=== PATIENT | female | born 1975 | race African-American/Black ===

== ENCOUNTER 2020-04-27 15:52 | Outpatient (CLI) | payer BC, SELFPAY ==
--- NOTE | ~2020-04-27 | MM_ITS ---
EXAMINATION: MM screening [facility] BI w baldev HISTORY: Screening mammogram TECHNIQUE: Craniocaudal and mediolateral oblique 3-D tomosynthesis images were obtained and synthetic 2-D images were generated. CAD analysis was submitted and interpreted. COMPARISON: 09/20/2018 bilateral diagnostic digital mammogram BREAST PARENCHYMAL COMPOSITION: There are scattered areas of fibroglandular density............ FINDINGS: There is no evidence of suspicious mass, calcification, or architectural distortion to sugg est malignancy in either breast. There has been no suspicious interval change. IMPRESSION: 1. No mammographic evidence of malignancy. 2. Recommend routine screening mammography in one year. BI-RADS Category 1: Negative Reviewed, dictated and finalized at location A.
== END 2020-04-27 15:53 | disposition home or self-care (01) ==
PROVIDERS: PCP Nurse Practitioner Family; Visit Provider Obstetrics & Gynecology
DX: Z12.31 Encounter for screening mammogram for malignant neoplasm of breast (principal)
CPT/HCPCS: 77063; 77067

== ENCOUNTER 2021-03-25 02:49 | Day surgery (SDC) | payer BC, OTHER, SELFPAY ==
[2021-03-21 13:30] VITALS: BMI 32.9
--- NOTE | 2021-03-25 13:15 | PM.HPGS ---
History of Present Illness History of Present Illness Consent: Risks, benefits, and alternatives have been discussed and questions answered. Patient agrees to proceed with procedure. Chief complaint: menorrhagia Narrative: Alvaro Edwards is a 45 year old female who presented to the office with heavy cycles. Patient reports passing clots. ultrasound show fibroids. Review of Systems Constitutional: Constitutional: Reports fatigue and Reports lethargy PMFSH Past Medical History Medical History (Updated 03/25/21 @ 13:17 by Aleksandr Lamb MD) Menorrhagia, premenopausal Family History Family History Sibling Patient's sister is in good health Mother Hypertension Father Patient's father is , Onset Age: 525 Family history of malignant neoplasm Other Family history of lung cancer Social History Social History Smoking status: Never smoker Second hand tobacco smoke exposure: No Alcohol intake: never Substance use: never Substance use type: does not use Living arrangements: with family Spiritual care concerns: No Meds Home Medications and Allergies Home Medications Medication Instructions Recorded Confirmed Type cyanocobalamin (vitamin B-12) 1,000 mcg IM MONTHLY 03/21/21 03/21/21 History diazepam 5 mg PO HS 03/21/21 03/21/21 History ergocalciferol (vitamin D2) 50,000 unit PO WEEKLY 03/21/21 03/21/21 History [Vitamin D2] ferrous sulfate 325 mg PO DAILY 03/21/21 03/21/21 History fluticasone propionate 50 mcg INTRANASAL DAILY 03/21/21 03/21/21 History montelukast 10 mg PO HS 03/21/21 03/21/21 History dy-kg-brqm-FA-Ca carb-vit K 1 tablet PO DAILY 03/21/21 03/21/21 History [Women's Multivitamin] spironolactone 100 mg PO BID 03/21/21 03/21/21 History Allergies Allergy/AdvReac Type Severity Reaction Status Date / Time Penicillins Allergy Intermediate HIVES, RASH Verified 03/21/21 13:33 Assessment and Plan Assessment and plan (1) Menorrhagia, premenopausal: Code(s): N92.4 - Excessive bleeding in the premenopausal period Status: Acute Assessment and Plan: scheduled for a hysteroscopy with dilation and curettage. Risk and benefits reviewed with patient.
[2021-03-25 13:47] VITALS: BMI 35.0
[2021-03-25 13:48] VITALS: BP 121/75; PULSE 61; RESP 14; TEMP 36.1; O2SAT 100
[2021-03-25] MEDS: ACETAMINOPHEN 500 MG TABLET 1000 MG PO (13:56)
[2021-03-25] MEDS: LACTATED RINGERS 1,000 ML 30 ML IV CONT (14:00)
--- NOTE | 2021-03-25 15:06 | WPDANESEPPF ---
Anes - Initial Pre Proc Eval Procedure: Operation Date: 03/25/21 15:30 Proposed Procedures p Hysteroscopy Dilation and Curettage - Aleksandr Lamb MD Date/Time: 03/25/21 15:06 Surgeon: Aleksandr Lamb MD Pre Op Diagnosis: menorrhagia Patient Data Age: 45 Gender: F Height: 1.57 m Weight: 86.9 kg Last Vital Signs Temp 36.1 C L 03/25/21 13:48 Pulse 61 03/25/21 13:48 Resp 14 03/25/21 13:48 BP 121/75 03/25/21 13:48 Pulse Ox 100 03/25/21 13:48 Allergies Allergy/AdvReac Type Severity Reaction Status Date / Time Penicillins Allergy Intermediate HIVES, RASH Verified 03/25/21 13:51 Home Medications Medication Instructions Recorded Confirmed Type cyanocobalamin (vitamin B-12) 1,000 mcg IM MONTHLY 03/21/21 03/25/21 History diazepam 5 mg PO HS 03/21/21 03/21/21 History ergocalciferol (vitamin D2) 50,000 unit PO WEEKLY 03/21/21 03/25/21 History [Vitamin D2] ferrous sulfate 325 mg PO DAILY 03/21/21 03/25/21 History fluticasone propionate 50 mcg INTRANASAL DAILY 03/21/21 03/21/21 History montelukast 10 mg PO HS 03/21/21 03/21/21 History sb-wz-npcp-FA-Ca carb-vit K 1 tablet PO DAILY 03/21/21 03/25/21 History [Women's Multivitamin] spironolactone 100 mg PO BID 03/21/21 03/21/21 History Patient hx anesthesia problems: post op nausea/vomiting Family hx anesthesia problems: none PMFSH Past Medical History Medical History (Updated 03/25/21 @ 15:06 by Gwyn Perera MD) Anxiety Menorrhagia, premenopausal Obesity Surgical History Surgical History (Updated 03/25/21 @ 15:06 by Gwyn Perera MD) History of gastric surgery Family History Family History Sibling Patient's sister is in good health Mother Hypertension Father Patient's father is , Onset Age: 525 Family history of malignant neoplasm Other Family history of lung cancer Social History Social History Smoking status: Never smoker Second hand tobacco smoke exposure: No Alcohol intake: never Substance use: never Substance use type: does not use Living arrangements: with family Spiritual care concerns: No Anes - Eval Final PreProcedure Day of Procedure 03/25/21 15:06 Patient weight: obese Heart: regular rate and rhythm Lungs: clear to auscultation Airway: Mallampati scale class II Neurological: alert and oriented ASA classification: III Emergent: no Anesthetic plan: proceed Anesthesia type and monitoring: general GIVS and standard monitoring Informed Consent: The patient's anesthetic plan and its attendant risks and benefits were discussed with the patient/family/POA. Questions were solicited and answers provided to the satisfaction of the patient/family/POA.
--- NOTE | 2021-03-25 15:12 | WPDHPUPDATE1 ---
History and Physical Update Update Date/Time: 03/25/21 15:12 History and Physical has been reviewed, including an updated exam of the patient. There are NO changes in the patient's condition. Risks, benefits, and alternatives have been discussed and questions answered. Patient agrees to proceed with procedure.
[2021-03-25 15:50] VITALS: BP 138/88; PULSE 74; RESP 14; O2SAT 99
--- NOTE | 2021-03-25 15:52 | W.PM.PROC2 ---
Procedure Note - Detailed Date of Procedure 03/25/21 Pre-op Diagnosis menorrhagia Post-op Diagnosis same Procedure Performed hysteroscopy dilation and curettage Surgeon Aleksandr Lamb MD Anesthesia MAC and local Description of Procedure Patient was taken to the operating room with IV running for prep and draped in a normal sterile fashion. She was placed in a dorsal lithotomy position a bivalve speculum was placed into the vagina anterior lip of the cervix was grasped with a single-tooth tenaculum. The cervix was injected at the 2 and 10 o'clock position with 5cc of lidocaine bilaterally. The uterus was sounded to 9cm cyst was serially dilated with Hegar dilators to 8. The hysteroscope was introduced into the uterine cavity and the cavity was noted to be normal. Hysteroscope was removed a sharp curettage was performed in all 4 quadrants with gritty texture. The tissue sample was sent to pathology. Instruments were removed from the vagina hemostasis was noted patient was taken to recovery room in stable condition Estimated Blood Loss 10 Drains No Packing No Pathology yes Complications None Condition stable Disposition PACU
[2021-03-25 15:59] VITALS: BP 138/88; PULSE 74; RESP 14; O2SAT 99
[2021-03-25 16:10] VITALS: BP 116/65; PULSE 65; RESP 14; O2SAT 100
[2021-03-25] MEDS: fentaNYL CITRATE INJ (*CRX) 100 MCG/2 ML VIAL 25 MCG IV PUSH (16:13)
[2021-03-25 16:40] VITALS: BP 102/62; PULSE 59; RESP 14
[2021-03-25] MEDS: oxyCODONE HCL (*CRX) 5 MG TAB IR PO (16:52)
== END 2021-03-25 17:10 | disposition home or self-care (01) ==
PROVIDERS: PCP Nurse Practitioner Family; Visit Provider Obstetrics & Gynecology
PROC: 0U5B8ZZ Destruction of Endometrium, Via Natural or Artificial Opening Endoscopic (ICD-10-PCS; CPT 58563; principal; 2021-03-25 15:30)
DX: N92.4 Excessive bleeding in the premenopausal period (principal); F41.9 Anxiety disorder, unspecified; E66.9 Obesity, unspecified; Z68.35 Body mass index [BMI] 35.0-35.9, adult
CPT/HCPCS: 58558; 88305; A9270; J2250; J2704; J3010; J7030; J7120

== ENCOUNTER 2021-04-29 14:17 | Outpatient (CLI) | payer BC, OTHER, SELFPAY ==
--- NOTE | ~2021-04-29 | MM_ITS ---
EXAMINATION: MM screening [facility] BI w baldev HISTORY: Screening TECHNIQUE: Craniocaudal and mediolateral oblique 3-D tomosynthesis images were obtained and synthetic 2-D images were generated. CAD analysis was submitted and interpreted. COMPARISON: Comparison to multiple prior studies sequentially, with oldest reviewed study dated 03/2019. BREAST PARENCHYMAL COMPOSITION: There are scattered areas of fibroglandular density. FINDINGS: There is no evidence of suspicious mass, calcification, or architectural distortion to sugg est malignancy in either breast. There has been no suspicious interval change. IMPRESSION: 1. No mammographic evidence of malignancy. 2. Recommend routine screening mammography in one year. BI-RADS Category 1: Negative Reviewed, dictated and finalized at location A.
== END 2021-04-29 14:18 | disposition home or self-care (01) ==
LOC: ANHIMG 14:19
PROVIDERS: PCP Nurse Practitioner Family; Visit Provider Obstetrics & Gynecology
DX: Z12.31 Encounter for screening mammogram for malignant neoplasm of breast (principal)
CPT/HCPCS: 77063; 77067

== ENCOUNTER 2022-06-10 11:36 | Outpatient (CLI) | payer BC, OTHER, SELFPAY ==
--- NOTE | ~2022-06-10 | MM_ITS ---
EXAMINATION: MM screening [facility] BI w baldev HISTORY: Screening TECHNIQUE: Craniocaudal and mediolateral oblique 3-D tomosynthesis images were obtained and synthetic 2-D images were generated. CAD analysis was submitted and interpreted. COMPARISON: Comparison to multiple prior studies sequentially, with oldest reviewed study dated 03/2019. BREAST PARENCHYMAL COMPOSITION: There are scattered areas of fibroglandular density. FINDINGS: There is no evidence of suspicious mass, calcification, or architectural distortion to sugg est malignancy in either breast. There has been no suspicious interval change. IMPRESSION: 1. No mammographic evidence of malignancy. 2. Recommend routine screening mammography in one year. BI-RADS Category 1: Negative Reviewed, dictated and finalized at location A.
== END 2022-06-10 11:37 | disposition home or self-care (01) ==
PROVIDERS: PCP Nurse Practitioner; Visit Provider Nurse Practitioner
DX: Z12.31 Encounter for screening mammogram for malignant neoplasm of breast (principal)
CPT/HCPCS: 77063; 77067

== ENCOUNTER 2023-02-07 13:46 | Outpatient (CLI) | payer BC, OTHER, SELFPAY ==
--- NOTE | ~2023-02-07 | MM_ITS ---
EXAMINATION: MM diagnostic [facility] RT w baldev HISTORY: Lateral right breast pain TECHNIQUE: ML, MLO and CC 3-D tomosynthesis images of the right breast were performed and synthetic 2 -D images were generated. CAD analysis was submitted and interpreted. COMPARISON: 06/10/2022 bilateral screening mammogram BREAST PARENCHYMAL COMPOSITION: There are scattered areas of fibroglandular density. FINDINGS: No suspicious mass or architectural distortion, malignant calcification, skin thickening or retraction or significant new or developing density is detected. IMPRESSION: 1. No mammographic evidence of malignancy 2. Routine annual mammographic screening is recommended BI-RADS Category 1: Negative Reviewed, dictated and finalized at location A.
== END 2023-02-07 13:47 | disposition home or self-care (01) ==
PROVIDERS: PCP Nurse Practitioner; Visit Provider Nurse Practitioner
DX: N64.4 Mastodynia (principal)
CPT/HCPCS: 77061; 77065; G0279

== ENCOUNTER 2023-11-13 12:23 | Outpatient (CLI) | payer BC, OTHER, SELFPAY ==
--- NOTE | ~2023-11-13 | MMUS_ITS ---
EXAMINATION: US breast RT limited, MM diagnostic [facility] BI w baldev HISTORY: Mastodynia. Discoloration. TECHNIQUE: Additional 3-D tomosynthesis images of the right breast were performed and synthetic 2-D i mages were generated. CAD analysis was submitted and interpreted. High resolution Limited right breas t ultrasound was performed. COMPARISON: Comparison to multiple prior studies sequentially, with oldest reviewed study dated 03/2019. BREAST PARENCHYMAL COMPOSITION: Not dense: There are scattered areas of fibroglandular density. FINDINGS: MAMMOGRAPHIC FINDINGS: The breasts are stable. No suspicious masses, calcifications or architectural distortion. No evidence for malignancy in either breast. ULTRASOUND: Limited right breast ultrasound: Normal heterogeneous echotexture without focal solid or cystic mass. IMPRESSION: 1. No evidence for malignancy in either breast. 2. Routine yearly screening mammogram and regular clinical breast examination are recommended. BI-RADS Category 1: Negative Reviewed, dictated and finalized at location A. IMPRESSION: 1. No evidence for malignancy in either breast. 2. Routine yearly screening mammogram and regular clinical breast examination a re recommended. BI-RADS Category 1: Negative
== END 2023-11-13 12:24 | disposition home or self-care (01) ==
PROVIDERS: PCP Nurse Practitioner; Visit Provider Advanced Practice Midwife
DX: N64.59 Other signs and symptoms in breast (principal)
CPT/HCPCS: 76642; 77062; 77066; G0279